=== PATIENT | female | born 1975 | race Caucasian/White ===

== ENCOUNTER 2020-04-05 06:53 | Outpatient (NON) | payer BC, SELFPAY ==
[2020-04-05 21:43] LABS: SARS-CoV-2 RNA PCR Negative
== END 2020-04-05 06:54 ==
LOC: ANHCOVIDDT 06:59
PROVIDERS: Physician Assistant; PCP Family Medicine; Visit Provider Family Medicine
DX: Z20.828 Contact with and (suspected) exposure to other viral communicable diseases (principal)
CPT/HCPCS: 87635; C9803; U0003

== ENCOUNTER → 2020-08-27 15:25 | Outpatient (CLI) | payer BC, SELFPAY ==
--- NOTE | ~2020-08-27 | MM_ITS ---
EXAMINATION: MM screening long BI w maia HISTORY: Screening TECHNIQUE: Craniocaudal and mediolateral oblique 3-D tomosynthesis images were obtained and synthetic 2-D images were generated. CAD analysis was submitted and interpreted. COMPARISON: 08/14/2016 BREAST PARENCHYMAL COMPOSITION: The breasts are heterogeneously dense, which may obscure small masses . FINDINGS: There is no evidence of suspicious mass, calcification, or architectural distortion to sugg est malignancy in either breast. There has been no suspicious interval change. IMPRESSION: 1. No mammographic evidence of malignancy. 2. Recommend routine screening mammography in one year. BI-RADS Category 1: Negative Reviewed, dictated and finalized at location A.
== END ==
PROVIDERS: Visit Provider Obstetrics & Gynecology
DX: Z12.31 Encounter for screening mammogram for malignant neoplasm of breast (principal)
CPT/HCPCS: 77063; 77067

== ENCOUNTER 2020-10-03 05:15 | Emergency (ER) | payer OTHER, BC, SELFPAY ==
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
[2020-10-03 05:24] VITALS: BP 131/85; PULSE 71; RESP 20; TEMP 36.7; O2SAT 100
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
--- NOTE | 2020-10-03 05:47 | PC.NURSE ---
C-Collar applied and pt went to CT.
[2020-10-03] MEDS: CYCLOBENZAPRINE HCL 5 MG TABLET PO (06:06)
[2020-10-03] MEDS: IBUPROFEN 400 MG TABLET 800 MG PO (06:06)
[2020-10-03 06:41] VITALS: BP 139/81; PULSE 81; RESP 18; O2SAT 99
== END 2020-10-03 06:49 | disposition home or self-care (01) ==
PROVIDERS: Emergency Provider General Practice; PCP Family Medicine
DX: S16.1XXA Strain of muscle, fascia and tendon at neck level, initial encounter (principal); V87.8XXA Person injured in other specified noncollision transport accidents involving motor vehicle (traffic), initial encounter; I10 Essential (primary) hypertension; E55.9 Vitamin D deficiency, unspecified
CPT/HCPCS: 71045; 72072; 72125; 99284; A9270; L0140

== ENCOUNTER → 2022-01-28 13:44 | Outpatient (CLI) | payer BC, SELFPAY ==
--- NOTE | ~2022-01-28 | MM_ITS ---
EXAMINATION: MM screening long BI w maia HISTORY: Screening mammogram TECHNIQUE: Craniocaudal and mediolateral oblique 3-D tomosynthesis images were obtained and synthetic 2-D images were generated. CAD analysis was submitted and interpreted. COMPARISON: 08/25/2020, 08/14/2016 bilateral screening mammogram examinations BREAST PARENCHYMAL COMPOSITION: There are scattered areas of fibroglandular density. FINDINGS: There is new asymmetric increased density in the posterior upper inner right breast. Diagno stic right mammogram and right breast ultrasound examination are recommended. Otherwise no suspicious mass, architectural distortion, malignant calcification, skin thickening or r etraction or significant new or developing density since 08/27/2020 4 08/14/2016 is noted. IMPRESSION: 1. New asymmetric increased density in the posterior upper inner right breast 2. Diagnostic right mammogram and right breast ultrasound examination are recommended BI-RADS Category 0: Incomplete: Needs additional imaging evaluation. Reviewed, dictated and finalized at location A. IMPRESSION: 1. New asymmetric increased density in the posterior upper inner right breast 2. Diagnostic right mammogram and right breast ultrasound examination are recom mended BI-RADS Category 0: Incomplete: Needs additional imaging evaluation.
--- NOTE | ~2022-01-28 | US_ITS ---
EXAMINATION: US pelvic complete DATE: 01/28/2022 14:48 INDICATION: Uterine hypertrophy Comparison:Ultrasound dated 08/10/2017 TECHNIQUE: Multiple transabdominal and endovaginal sonographic images of the pelvis performed. FINDINGS: The uterus measures 12.8 x 6.2 x 6.2 cm. There are multiple uterine fibroids, largest measu ring 4.2 cm maximum dimension. There is an IUD in the endometrium. The endometrial complex measures 5 mm. The right ovary measures 2.9 x 2 x 1.8 cm and the left ovary measures 3.7 x 2.7 x 1.9 cm. There are small follicles in each ovary. Normal doppler signal in both ovaries. There is no free fluid in the pelvis. There are no abnormal masses seen on either side. IMPRESSION: 1. Enlarged fibroid uterus. IUD present in the endometrium. Reviewed, dictated and finalized at location B.
== END ==
PROVIDERS: PCP Family Medicine; Visit Provider Nurse Practitioner
DX: Z12.31 Encounter for screening mammogram for malignant neoplasm of breast (principal); N85.2 Hypertrophy of uterus; R92.8 Other abnormal and inconclusive findings on diagnostic imaging of breast; D25.9 Leiomyoma of uterus, unspecified
CPT/HCPCS: 76856; 77063; 77067

== ENCOUNTER → 2022-02-13 07:50 | Outpatient (CLI) | payer BC, SELFPAY ==
--- NOTE | ~2022-02-13 | MMUS_ITS ---
EXAMINATION: MM diagnostic long RT w maia, US breast RT limited HISTORY: Focal asymmetry of the right breast on screening mammogram TECHNIQUE: Additional 3-D tomosynthesis images of the right breast were performed and synthetic 2-D i mages were generated. CAD analysis was submitted and interpreted. High resolution limited right breas t ultrasound was performed. COMPARISON: 01/28/2022, 08/27/2020, 08/14/2016 FINDINGS: MAMMOGRAPHIC FINDINGS: There is a persistent focal asymmetry in the far posterior third of the upper breast at the 12:00 to 1:00 location 11 cm from the nipple. No suspicious mass, calcification, or architectural distortion a re identified. ULTRASOUND: There is no evidence of focal abnormal solid or cystic mass in the vicinity of the mammographic findi ng in question. IMPRESSION: 1. Probably benign focal asymmetry of the right breast. 2. Recommend 6 month follow-up right diagnostic mammogram and possible ultrasound. BI-RADS category 3, probably benign findings. Reviewed, dictated and finalized at location A. IMPRESSION: 1. Probably benign focal asymmetry of the right breast. 2. Recommend 6 month follow-up right diagnostic mammogram and possible ultrasou nd. BI-RADS category 3, probably benign findings.
== END ==
PROVIDERS: PCP Family Medicine; Visit Provider Obstetrics & Gynecology Gynecology
DX: R92.8 Other abnormal and inconclusive findings on diagnostic imaging of breast (principal)
CPT/HCPCS: 76642; 77061; 77065; G0279

== ENCOUNTER → 2022-08-13 07:52 | Outpatient (CLI) | payer BC, SELFPAY ==
--- NOTE | ~2022-08-13 | MMUS_ITS ---
EXAMINATION: MM diagnostic long RT w maia, US breast RT limited HISTORY: Six-month follow-up of probably benign focal right breast mammographic asymmetry TECHNIQUE: ML, MLO and CC 3-D tomosynthesis images of the right breast were performed and synthetic 2 -D images were generated. CAD analysis was submitted and interpreted. High resolution upper inner johnny drant right breast ultrasound was performed. COMPARISON: 02/13/2022 diagnostic right mammogram and limited right breast ultrasound 01/28/2022, 08/27/2020, 08/14/2016 bilateral screening mammogram examinations BREAST PARENCHYMAL COMPOSITION: There are scattered areas of fibroglandular density. FINDINGS: MAMMOGRAPHIC FINDINGS: Stable asymmetry in the posterior upper inner right breast since 01/28/2022. No interval suspicious ma ss, architectural distortion, malignant calcification, skin thickening or retraction is detected. Thi s asymmetry however is new since 08/27/2020 and 08/14/2016. ULTRASOUND: At 3:00 subareolar area there is a 2.2 x 4 mm cyst. No suspicious mass or shadowing is noted otherwis e. IMPRESSION: 1. Asymmetric density in the posterior upper inner right breast, not present on 08/27/2020 or 08/14/2016 , without sonographic correlate 2. MR breast examination should be considered BI-RADS Category 0: Incomplete; need additional imaging evaluation Reviewed, dictated and finalized at location A. FLOORING SPECIALIST IMPRESSION: 1. Asymmetric density in the posterior upper inner right breast, not present on 08/27/2020 or 08/14/2016, without sonographic correlate 2. MR breast examination should be considered BI-RADS Category 0: Incomplete; need additional imaging evaluation
== END ==
PROVIDERS: PCP Family Medicine; Visit Provider Obstetrics & Gynecology Gynecology
DX: R92.8 Other abnormal and inconclusive findings on diagnostic imaging of breast (principal)
CPT/HCPCS: 76642; 77061; 77065; G0279

== ENCOUNTER 2022-08-26 12:33 | Outpatient (CLI) | payer BC, SELFPAY ==
--- NOTE | ~2022-08-26 | MR_ITS ---
MR breast BI wo/w con 08/28/2022 14:49 CDT INDICATION: New focal asymmetry of the right breast TECHNIQUE: MRI of the breasts perform using standard protocol pre-and post IV contrast with the follo wing sequences: Axial T2 STIR, axial T1, axial vibrant T1 with fat suppression precontrast and multip hasic postcontrast. COMPARISON: Comparison to multiple prior studies sequentially, with oldest reviewed study dated 07/2016. FINDINGS: There are no abnormalities on the precontrast sequences. There is mild background parenchym al enhancement. There are scattered bilateral focal nonmasslike enhancement and likely background enh ancement. No enhancing lesions following contrast administration. No areas of enhancement meeting th reshold criteria on CAD analysis. No evidence of signal abnormalities in the axillary or internal ma mmary node distributions. LEFT BREAST: No signal abnormalities on precontrast sequences. There is mild background parenchymal enhancement. No enhancing lesions following contrast administration. No areas of enhancement meeti ng threshold criteria on CAD analysis. No evidence of signal abnormalities in the axillary or inter nal mammary node distributions.] IMPRESSION: 1: Right breast: Negative. No evidence of malignancy. Given the new focal area of asymmetry in the upper inner quadrant of the right breast on mammography, six-month follow-up is recommended. BI-RADS Category 3. 2: Left breast: Negative. No evidence of malignancy. BI-RADS category 1. Recommend annual mammogr aphy follow-up. Follow-up MRI may be useful for supplementing mammographic evaluation as clinically indicated. Reviewed, dictated and finalized at location A. IMPRESSION: 1: Right breast: Negative. No evidence of malignancy. Given the new focal ar ea of asymmetry in the upper inner quadrant of the right breast on mammography, six-month follow-up is recommended. BI-RADS Category 3. 2: Left breast: Negative. No evidence of malignancy. BI-RADS category 1. Re commend annual mammography follow-up. Follow-up MRI may be useful for supplementing mammographic evaluation as clinic ally indicated.
== END 2022-08-26 12:34 | disposition home or self-care (01) ==
PROVIDERS: PCP Family Medicine; Visit Provider Obstetrics & Gynecology Gynecology
DX: R92.8 Other abnormal and inconclusive findings on diagnostic imaging of breast (principal)
CPT/HCPCS: 77049; A9577; C8908

== ENCOUNTER → 2023-03-30 07:43 | Outpatient (CLI) | payer BC, SELFPAY ==
--- NOTE | ~2023-03-30 | MMUS_ITS ---
EXAMINATION: MM diagnostic long BI w maia, US breast RT limited HISTORY: Follow-up right breast asymmetry TECHNIQUE: Additional 3-D tomosynthesis images of the breasts were performed and synthetic 2-D images were generated. CAD analysis was submitted and interpreted. High resolution Limited right breast ult rasound was performed. COMPARISON: Comparison to multiple prior studies sequentially, with oldest reviewed study dated rece /id 07/2016. BREAST PARENCHYMAL COMPOSITION: Breast composed of scattered areas of fibroglandular density FINDINGS: MAMMOGRAPHIC FINDINGS: Focal asymmetry upper inner quadrant of the right breast is stable compared with 02/13/2022 and 022. No new masses, calcifications or architectural distortion in either breast to suggest malignancy . ULTRASOUND: Limited ultrasound of the right breast: At 3:00 near the areola there is a 4 mm cyst. No suspicious masses or architectural distortion in the area of breast asymmetry. IMPRESSION: 1. Probable benign focal right breast asymmetry. 2. Recommend 6 month follow-up diagnostic right mammogram BI-RADS category 3, probably benign findings. Reviewed, dictated and finalized at location A. IMPRESSION: 1. Probable benign focal right breast asymmetry. 2. Recommend 6 month follow-up diagnostic right mammogram BI-RADS category 3, probably benign findings.
== END ==
PROVIDERS: PCP Obstetrics & Gynecology Gynecology; Visit Provider Obstetrics & Gynecology Gynecology
DX: R92.8 Other abnormal and inconclusive findings on diagnostic imaging of breast (principal)
CPT/HCPCS: 76642; 77062; 77066; G0279

== ENCOUNTER 2023-10-13 14:19 | Outpatient (CLI) | payer BC, SELFPAY ==
--- NOTE | ~2023-10-13 | MM_ITS ---
EXAMINATION: MM diagnostic long BI w maia HISTORY: Six-month follow-up of probable benign focal right mammographic asymmetry. Patient complains of intermittent bilateral breast pain for 6 weeks. TECHNIQUE: ML, MLO and CC 3-D tomosynthesis images of both breasts were performed and synthetic 2-D i mages were generated. CAD analysis was submitted and interpreted. COMPARISON: 03/30 32,023 diagnostic right mammogram and Limited right breast ultrasound 08/26/2022 MR of the breasts 08/13/2022 diagnostic right mammogram and limited right breast ultrasound 02/13/2022 diagnostic right mammogram and Limited right breast ultrasound 01/28/2022, 08/27/2020ilateral screening mammogram examinations BREAST PARENCHYMAL COMPOSITION: There are scattered areas of fibroglandular density. FINDINGS: No suspicious mass or architectural distortion, malignant calcification, skin thickening or retraction or significant new or developing density is detected. IMPRESSION: 1. No mammographic evidence of malignancy 2. Routine annual mammographic screening is recommended BI-RADS Category 1: Negative Reviewed, dictated and finalized at location A.
== END 2023-10-13 14:20 ==
LOC: MICIMG 14:19
PROVIDERS: PCP Nurse Practitioner; Visit Provider Nurse Practitioner
DX: N64.4 Mastodynia (principal)
CPT/HCPCS: 77062; 77066; G0279

== ENCOUNTER 2024-08-25 00:50 | Day surgery (SDC) | payer BC, SELFPAY ==
[2024-08-16 09:50] VITALS: BMI 27.4
--- OUTSIDE RECORDS SUMMARY | 2024-08-25 00:52 | XMS_ITS | Continuity of Care Document ---
Author Organization [facility] Address [address] [place] [address] Phone Care Team Providers Care Money Laundering Investigator Name Role Phone Amberly PT, ULIT, Tristan Unavailable Unavailable Procedures Procedure Date Progress Note Therapeutic Exercise Therapeutic Activities Neuromuscular Re-Ed Therapeutic Activities Therapeutic Exercise Neuromuscular Re-Ed Neuromuscular Re-Ed Therapeutic Exercise Therapeutic Activities Neuromuscular Re-Ed Therapeutic Activities Therapeutic Exercise Neuromuscular Re-Ed Therapeutic Activities Therapeutic Exercise Therapeutic Activities Therapeutic Exercise Neuromuscular Re-Ed PT Evaluation Moderate Complexity Therapeutic Activities Therapeutic Exercise Neuromuscular Re-Ed Advance Directives Directive Yes / No Effective Date File Name No Information Encounters Encounter Description Practice Location Reason(s) For Visit Diagnoses Date Provider Providers Copied on Encounter [facility], [place], [place], [id number], tel:[phone] [place] No Information Amberly Hudson. . [facility], [place], [place], [id number], tel:[phone] [place] No Information 1 Makler Luke. . Referring Provider: Anyi Campos , [address] [facility], [place], [address]. tel:[phone] [place] [address] [place] [address], [place], [place], [id number], tel:[phone] [place] No Information 1 Makler Luke. . Referring Provider: Anyi Campos , [address] [facility], [place], [address]. tel:[phone] [place] [address] [place] [address], [place], [place], [id number], [place] tel:[phone] [place] No Information 1 Makler Luke. . Referring Provider: Anyi Campos , [address] [facility], [place], [address]. tel:[phone] [place] [address], [id number], [place] tel:[phone] [place] No Information 1 Makler Luke. . Referring Provider: Anyi Campos , [address] [facility], [place], [address]. tel:[phone] [place] [address] [place] [address], [id number], tel:[phone] [place] No Information 1 Makler Luke. . Referring Provider: Anyi Campos , [address] [facility] [place], [address]. tel:[phone] [place] [address] [place] [address], [place], [place], [id number], [place] tel:[phone] [place] No Information 1 Makler Luke. . Referring Provider: Anyi Campos , [address] [facility], [place], [address]. tel:[phone] [facility] [place], [address] [facility] [address], [place], [place], [id number], [place] tel:[phone] [place] No Information Amberly Hudson. . Referring Provider: Anyi Campos , [address] [facility], [place], [address]. tel:[phone] Family History Family Member Type Diagnosis Age At Onset No Information Payers Payer name Insurance type Covered libertarian ID Authordonovana tiyesika(s) [employer] AM [id number] Social History Type Description Quantity Date Captured Comments Sex Female Smoking Status No Information Chief Complaint And Reason For Visit No Information Reason For Referral Reason For Referral No Information History Of Present Illness Encounter Date Complaint History Of Prese nt Illness No Information Functional Status Date Functional Assessmen t No Information Instructions Date Instruction Additional Infor mation Giving encouragement to exercise Related to Overweight Giving encouragement to exercise Related to Overweight Assessments Type Assessment Date No Information Patient Care Teams Name Effective Dates (start - stop) Status Members No Information
--- OUTSIDE RECORDS SUMMARY | 2024-08-25 00:52 | XMS_ITS | Clinical Summary ---
Author Organization [facility] Address [address] [place] [address] Care Team Providers Care Land Acquisition Analyst Name Role Phone Unavailable Primary Care Provider Unavailabl e Immunizations Immunization Administration Dates Next Due Covid-19, Mrna, Lnp-s, PF, 1 00 mcg/0.5 mL Dose (Moderna) 04/19/2021 Social History Tobacco Use Types Packs/Day Years Used Date Smoking Tobacco: Never Assessed Comments Unknown Sex and Gender Information Value Date Recorded Sex Assigned at Not on file Legal Sex Female 8:27 AM CDT Gender Identity Not on file Sexual Orientation Not on file Plan of Treatment Health Maintenance Due Date Last Done Comments Hepatitis C Virus (HCV) Screening 1974 Mammogram 1974 TdaP Immunization 1974 Hepatitis B Immunization (1 of 3 - 19+ 3-dose series) 1993 Discussion re Starting/Frequency of Mammograms 2014 Colonoscopy 2019 Colorectal Cancer Screening 2019 Influenza Immunization (#1) 2024 10/0 09/2020, 03/29/2014, 03/26/2012 SARS-COV-2 Immunization ( season) 2024 04/19/2021, 08/17/2020, 07/20/2020 Cologuard 2024 Immunochemical Fecal Occult Blood 2024 Pneumococcal Immunization (5 0+ years) (1 of 1 - PCV) 2024 Zoster Immunization (1 of 2) 2024 Respiratory Syncytial Virus (RSV) Immunization (Adult) (1 - 1-dose 75+ series) 2049 Cervical Cancer Screening (CCS) Discontinued Pap Smear Discontinued 03/25/2017 HPV/Cotest Discontinued Meningococcal Immunization (ACWY) Aged Out No longer eligible based on patient's age to complete this topic Pneumococcal Immunization Combined Aged Out No longer eligible based on patient's age to complete this topic Rotavirus Immunization Aged Out No lo nger eligible based on patient's age to complete this topic
--- OUTSIDE RECORDS SUMMARY | 2024-08-25 00:52 | XMS_ITS | Continuity of Care Document ---
Author Organization [facility] Address [address] [place] [address] Phone Care Team Providers Care Urology Surgeon Name Role Phone Michael Nguyen DO Unavailable Unavailable Advance Directives Directive Yes / No Effective Date File Name No Information Encounters Encounter Description Practice Location Reason(s) For Visit Diagnoses Date Provider Providers Copied on Encounter [facility], [address], [place], [place], [id number], [place] tel:[phone] [facility] No Information Wendy Rivera. [address] [facility], [place], [address], [place]. tel: [phone] Family History Family Member Type Diagnosis Age At Onset No Information Payers Payer name Insurance type Covered constitution party ID Authoriza tion(s) No Information Social History Type Description Quantity Date Captured Comments Sex Female Smoking Status No Information Chief Complaint And Reason For Visit No Information Reason For Referral Reason For Referral No Information History Of Present Illness Encounter Date Complaint History Of Prese nt Illness No Information Functional Status Date Functional Assessmen t No Information Instructions Date Instruction Additional Infor mation No Information Assessments Type Assessment Date No Information Patient Care Teams Name Effective Dates (start - stop) Status Members No Information
[2024-08-25 06:25] VITALS: BP 106/69; PULSE 71; RESP 18; TEMP 36.5; O2SAT 100
[2024-08-25] MEDS: LACTATED RINGERS 1,000 ML 150 ML IV CONT (06:41)
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
[2024-08-25 07:20] LABS: Beta HCG Quantitative < 2.39 mIU/ML
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
[2024-08-25 07:45] VITALS: BP 105/59; PULSE 59; RESP 16; O2SAT 99
[2024-08-25 07:55] VITALS: BP 113/63; PULSE 64; RESP 20; O2SAT 100
[2024-08-25 08:05] VITALS: BP 106/59; PULSE 60; RESP 20; O2SAT 100
== END 2024-08-25 08:13 | disposition home or self-care (01) ==
PROVIDERS: Anesthesiology; PCP Family Medicine; Visit Provider Surgery
PROC: 0DJD8ZZ Inspection of Lower Intestinal Tract, Via Natural or Artificial Opening Endoscopic (ICD-10-PCS; CPT 45378; principal; 2024-08-25 07:30)
DX: Z12.11 Encounter for screening for malignant neoplasm of colon (principal); K62.1 Rectal polyp; K57.30 Diverticulosis of large intestine without perforation or abscess without bleeding; I11.0 Hypertensive heart disease with heart failure; E55.9 Vitamin D deficiency, unspecified; M62.838 Other muscle spasm
CPT/HCPCS: 45380; 36415; 84702; 88305; J2003; J2704; J7120

== ENCOUNTER 2025-02-15 14:17 | Outpatient (CLI) | payer BC, SELFPAY ==
--- NOTE | ~2025-02-15 | MM_ITS ---
EXAMINATION: MM screening [facility] BI w maia HISTORY: Screening TECHNIQUE: Craniocaudal and mediolateral oblique 3-D tomosynthesis images were obtained and synthetic 2-D images were generated. CAD analysis was submitted and interpreted. COMPARISON: Mammograms from 01/28/2022 and 10/13/2023 BREAST PARENCHYMAL COMPOSITION: There are scattered areas of fibroglandular density. FINDINGS: There is no evidence of suspicious mass, calcification, or architectural distortion to suggest malignancy. There has been no suspicious interval change. IMPRESSION: 1. No mammographic evidence of malignancy. Recommend routine screening mammography in one year. BI-RADS Category 2: Benign finding(s) Reviewed, dictated and finalized at location Q. IMPRESSION: 1. No mammographic evidence of malignancy. Recommend routine screening mammogra phy in one year. BI-RADS Category 2: Benign finding(s)
== END 2025-02-15 14:18 | disposition home or self-care (01) ==
LOC: MICIMG 14:18
PROVIDERS: PCP Obstetrics & Gynecology Gynecology; Visit Provider Obstetrics & Gynecology Gynecology
DX: Z12.31 Encounter for screening mammogram for malignant neoplasm of breast (principal)
CPT/HCPCS: 77063; 77067